=== PATIENT | female | born 2000 | race Caucasian/White ===

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

== ENCOUNTER 2022-07-29 11:22 | Emergency (ER) | payer BC, SELFPAY ==
[2022-07-29 11:30] VITALS: BP 148/68; PULSE 61; RESP 24; TEMP 36.7; O2SAT 100; BMI 25.0; BMI 32.7
--- NOTE | 2022-07-29 11:30 | XR_ITS ---
FINAL REPORT CLINICAL HISTORY: INJURY, box fell on top of foot, patient shielded FINDINGS: AP, oblique and lateral views of the left foot were obtained. There is no prior exam for comparison. There is no acute fracture or dislocation. The joint spaces are preserved. Soft tissues are normal. IMPRESSION: No acute osseous abnormality of the left foot. Reviewed, Interpreted and Dictated by Kavya Swain MD Transcribed by Chasidy Roca Authenticated and [facility]
--- NOTE | 2022-07-29 11:57 | EXP.UTC ---
Discharge Plan Disposition Patient Disposition: Home, Self-Care Condition: Good Referrals Follow up/Referrals: Alexus Chatman PA [Primary Care Provider] - See instructions Activity Restrictions/Add. Instructions Additional Instructions/Restrictions: *weight bearing as tolerated *RICE, Rest the extremity, Ice 15-20 minutes 3-4 times daily, Compress- wear the andriy wrap as discussed as much as possible to help reduce swelling and pain, Elevate the extremity when at rest *Andriy wrap is for support and help control swelling, use it except in the shower. Be sure that is not to tight but not to loose either *Elevate when resting? *Ibuprofen 600-800mg every 6-8 hours as needed for pain an inflammation. If need something more can take Tylenol in between doses of Ibuprofen to help Clinical Impressions Clinical Impression: Contusion of foot, left Qualifiers: Encounter type: initial encounter Qualified Code(s): S90.32XA - Contusion of left foot, initial encounter Instructions Patient Instructions: DI for Contusion, How To Perform RICE (Rest, Ice, Compress, Elevate) Discharge ED Provider: Celine Marrero [facility] General Stated complaint: AO@Work 07/29/22 0430 LT foot pain Mode of Arrival: Ambulatory Source of Information: Patient Limitations: No Limitations Time Seen by Provider: 07/29/22 11:57 Description of Symptoms (Recalled from Triage Doc. by RN): PATIENT C/O LEFT FOOT PAIN SINCE YESTERDAY. SHE STATES WHILE AT WORK LAST NIGHT A HEAVY BOX (POSSIBLE DRESSER) WAS DROPPED ON THAT FOOT. HEENT Symptoms (Recalled from RN notes): No Resp Symptoms (Recalled from RN notes): No Skin Symptoms (Recalled from RN notes): No MS Symptoms (Recalled from RN notes): Yes Functional Status (Recalled from RN notes): WNL History of Present Illness Provider Complaint: Patient states that she was at work yesterday when a heavy box fell on her left foot States that ever since she has been having pain in the top of her left foot and hurts when she moves it or walks on it Denies bruising or swelling but was still having pain today so she came in Related Data Allergies Allergy/AdvReac Type Severity Reaction Status Date / Time No Known Allergies Allergy Verified 10/31/20 15:32 Worker's Comp Is this a Worker's Comp case?: No PFSH [facility] Disclaimer: The information contained in this section may have been updated after the patient was seen, as this information can be updated by other users. Medical History (Updated 07/29/22 @ 12:56 by Celine Marrero APRN) Cough with hemoptysis Social History Smoking Status: Never smoker alcohol intake: never substance use type: denies use current occupational status: student Travel in the last 8 weeks: None household members: family housing: house ROS Obtained: Yes All systems reviewed & no additional complaints except as documented and Yes Systems reviewed as appropriate & no additional complaints except as documented ENT Ears, Nose, Mouth, and Throat: Reports system reviewed and no additional complaints, except as documented and Reports as per HPI Cardiovascular Cardiovascular: Reports system reviewed and no additional complaints, except as documented and Reports as per HPI Respiratory Respiratory: Reports system reviewed and no additional complaints, except as documented and Reports as per HPI Musculoskeletal Musculoskeletal: Reports system reviewed and no additional complaints, except as documented and Reports as per HPI Comments: Pain in top of foot after box fell on foot at work yesterday Physical Exam General General appearance: alert and in no apparent distress Respiratory Respiratory exam: Present normal lung sounds bilaterally; Absent respiratory distress or wheezes Cardiovascular Cardiovascular exam: Present regular rate, normal rhythm and normal heart sounds Abdominal Exam Abdominal exam: Present soft and normal bowel sounds; Absent distention or tenderness Expanded Lower E
[2022-07-29 12:58] VITALS: BP 148/68; PULSE 61; RESP 24; TEMP 36.7; O2SAT 100
== END 2022-07-29 13:08 | disposition home or self-care (01) ==
PROVIDERS: Emergency Provider Nurse Practitioner; PCP Physician Assistant
DX: S90.32XA Contusion of left foot, initial encounter (principal); W20.8XXA Other cause of strike by thrown, projected or falling object, initial encounter
CPT/HCPCS: 73630; 99212; 99213; G0463

== ENCOUNTER 2023-05-11 11:17 | Emergency (ER) | payer BC, SELFPAY ==
[2023-05-11 11:20] VITALS: BP 137/68; PULSE 70; RESP 18; TEMP 36.7; O2SAT 99; BMI 27.4
--- NOTE | 2023-05-11 11:39 | EXP.UTC ---
Discharge Plan Disposition Patient Disposition: Home, Self-Care Condition: Good Prescriptions Prescriptions: New ybzkbkofselvkfq-ozykofeee-ND [Bromfed DM] 2-30-10 mg/5 mL Syrup 5 ml PO Q6H PRN (Reason: Cough) Qty: 240 0RF ondansetron 4 mg Tablet,Disintegrating 4 mg PO Q8H PRN (Reason: Nausea) Qty: 12 0RF ibuprofen [ibuprofen] 600 mg tablet 600 mg PO Q6HP PRN (Reason: Mild Pain) Qty: 30 0RF Referrals Follow up/Referrals: Alexus Chatman PA [Primary Care Provider] - See instructions Activity Restrictions/Add. Instructions Additional Instructions/Restrictions: Drink plenty of fluids. Take tylenol or ibuprofen for pain or fever. Take the medications as directed. Follow up with your regular doctor. GO TO THE ER FOR ANY WORSENING SYMPTOMS Clinical Impressions Clinical Impression: COVID-19 Stand Alone Forms Stand Alone Forms: Work/School Release Instructions Patient Instructions: Coronavirus Disease 2019, Preventing the Spread of Coronavirus Discharge Instructions Discharge ED Provider: Acosta Truong [facility] General Stated complaint: covid psoitive, body aches Mode of Arrival: Ambulatory Source of Information: Patient Limitations: No Limitations Time Seen by Provider: 05/11/23 11:39 Description of Symptoms (Recalled from Triage Doc. by RN): Pt had covid + test at home. The symptoms shes having is body aches, and fever. HEENT Symptoms (Recalled from RN notes): Yes Resp Symptoms (Recalled from RN notes): No Skin Symptoms (Recalled from RN notes): No MS Symptoms (Recalled from RN notes): No Functional Status (Recalled from RN notes): n/a History of Present Illness Provider Complaint: She states that for the past 1 day she has had malaise, body aches, fever, n/v. She tested positive on a home covid-19 test today. She needs a pcr covid-19 test done. Related Data Previous Rx's Medication Instructions Recorded cprsfllkvrgdhha-xsmvmzsvkhhtgff-YX 5 ml PO Q6H PRN Cough #240 mL 05/11/23 2 mg-30 mg-10 mg/5 mL oral syrup (Bromfed DM) ibuprofen 600 mg tablet 600 mg PO Q6HP PRN Mild Pain #30 05/11/23 tabs ondansetron 4 mg disintegrating 4 mg PO Q8H PRN Nausea #12 tabs 05/11/23 tablet Allergies Allergy/AdvReac Type Severity Reaction Status Date / Time No Known Allergies Allergy Verified 05/11/23 11:37 Worker's Comp Is this a Worker's Comp case?: No [facility] Disclaimer: The information contained in this section may have been updated after the patient was seen, as this information can be updated by other users. Medical History (Updated 05/11/23 @ 11:45 by Acosta Truong APRN) Cough with hemoptysis Social History Smoking Status: Never smoker alcohol intake: never substance use type: denies use current occupational status: student Travel in the last 8 weeks: None household members: family housing: house ROS Obtained: Yes All systems reviewed & no additional complaints except as documented Constitutional Constitutional: Reports chills and Reports fever(s) Eyes Eyes: Denies eye discharge ENT Ears, Nose, Mouth, and Throat: Reports as per HPI Cardiovascular Cardiovascular: Denies chest pain Respiratory Respiratory: Denies chest congestion and Reports cough Gastrointestinal Gastrointestingal: Reports nausea; Denies abdominal pain, constipation, cramping, diarrhea or vomiting Musculoskeletal Musculoskeletal: Denies arthralgias Integumentary/Breasts Skin/Breast: Denies rash Neurologic Neurologic: Denies paresthesias Physical Exam General General appearance: alert and in no apparent distress Head Head exam: atraumatic, normocephalic and normal inspection Eye Eye exam: Present normal appearance, PERRL and EOMI ENT ENT exam: Present normal exam, normal oropharynx, mucous membranes moist, TM's normal bilaterally and normal external ear exam Neck Neck exam: Present normal inspection, full ROM and trachea midline; Absent meningismus or lymphadenopathy Chest Chest inspection: Present normal inspection and symmetric chest wall rise; Absent tenderness Respiratory Respiratory exam: Present normal lung sounds bilaterally; Absent respiratory distress Cardiovascular Cardiovascular exam: Present regular rate and normal rhythm; Absent JVD Abdominal Exam Abdominal exam: Present soft and normal bowel sounds; Absent distention, tenderness or guarding Extremities Exam Extremities exam: Present normal inspection, full ROM and normal capillary refill; Absent calf tenderness Back Exam Back exam: Present normal inspection; Absent tenderness Neurological Exam Neurological exam: Present alert and oriented X3 Psychiatric Psychiatric exam: Present normal affect and normal mood Skin Skin exam: Present warm, dry, intact and normal color Lymphatic Lymphatic Findings: no adenopathy Medical Decision Making Medical Records Medical records reviewed: No I reviewed the patient's medical records. Ren Inquiry Pt receiving controlled substance: No Vital Signs: 05/11/23 11:20 Temperature 98.1 F Temperature Source Oral Pulse Rate [Right Radial] 70 Respiratory Rate 18 Blood Pressure [Right Arm] 137/68 Blood Pressure Mean [Right Arm] 91 Blood Pressure Source [Right Arm] Automatic Cuff Blood Pressure Position [Right Arm] Sitting 02 Sat by Pulse Oximetry 99 Oxygen Delivery Method Room Air Lab Data Lab results reviewed: Yes I reviewed the patient's lab results. Orders (Tests/Meds): ORDERS Category Date Time Status Covid-19 Nasal PCR ([facility]) Routine Lab 05/11/23 11:30 Received
[2023-05-11 11:51] VITALS: BP 138/73; PULSE 75; RESP 18; TEMP 36.6; O2SAT 99
== END 2023-05-11 11:50 | disposition home or self-care (01) ==
PROVIDERS: Emergency Provider Nurse Practitioner Family; PCP Physician Assistant
DX: U07.1 COVID-19 (principal); R50.9 Fever, unspecified; R11.2 Nausea with vomiting, unspecified; M79.18 Myalgia, other site; R53.81 Other malaise
CPT/HCPCS: 87635; 99212; 99214; G0463

== ENCOUNTER 2024-02-22 15:22 | Emergency (ER) | payer BC, SELFPAY ==
[2024-02-22 15:35] VITALS: BP 127/71; PULSE 68; RESP 20; TEMP 36.7; O2SAT 98; BMI 28.3
--- NOTE | 2024-02-22 15:48 | ED_ITS ---
Discharge Plan Disposition Patient Disposition: Home, Self-Care Condition: Good Referrals Follow up/Referrals: Alexus Chatman PA [Primary Care Provider] - See instructions Activity Restrictions/Add. Instructions Additional Instructions/Restrictions: *Monitor Temp, Over the counter Motrin or Tylenol as directed/as needed Tylenol every 4 hours and Motrin every 6 hours (as long as your family doctor has told you that you can take it) for fever or pain. and straight to ER if unable to lower temp less than 101.0 after medication given *Warm salt water gargles may help to soothe the throat *Throat Lozenges? *Warm fluids like tea with honey may help to soothe the throat? *Sleep elevated *Humidifier/Vaporizer Follow up IMMEDIATELY for new or worsening symptoms or no Noticeable improvement over the next 48-72 hours. 911 for difficulty breathing or swallowing You were tested for today for COVID19 your test result should be back in the next 24hours, you may check your results on the [facility] [employer] [facility] Clinical Impressions Clinical Impression: Viral syndrome Stand Alone Forms Stand Alone Forms: Work/School Release Instructions Patient Instructions: DI for COVID-19 (Suspected or Confirmed ) Print Language Print Language: [place] Discharge ED Provider: Celine Marrero [facility] [place] H[place] General Stated complaint: positive covid test at home Mode of Arrival: Ambulatory Source of Information: Patient Limitations: No Limitations Time Seen by Provider: 02/22/24 15:48 Description of Symptoms (Recalled from Triage Doc. by RN): PATIENT C/O SOA AND BODY ACHES SINCE YESTERDAY. PATIENT REPORTS A POSITIVE AT HOME COVID TEST HEENT Symptoms (Recalled from RN notes): No Resp Symptoms (Recalled from RN notes): Yes Skin Symptoms (Recalled from RN notes): No MS Symptoms (Recalled from RN notes): No Functional Status (Recalled from RN notes): WNL History of Present Illness Provider Complaint: Patient states that she started feeling bad yesterday with body aches, nasal congestion, feeling a little SOA at times, headache, chills and over all not feeling well states she went to work this morning and as the day continued she continued to not feel well so when she got home she took a COVID test and it showed positive so she came in to get tested here for work Related Data Allergies Allergy/AdvReac Type Severity Reaction Status Date / Time No Known Allergies Allergy Verified 05/11/23 11:37 Worker's Comp Is this a Worker's Comp case?: No [facility] Disclaimer: The information contained in this section may have been updated after the patient was seen, as this information can be updated by other users. Medical History (Updated 02/22/24 @ 15:52 by Celine Marrero APRN) Cough with hemoptysis Social History Smoking Status: Never smoker alcohol intake: never substance use type: denies use current occupational status: student Travel in the last 8 weeks: None household members: family housing: house ROS Obtained: Yes All systems reviewed & no additional complaints except as documented and Yes Systems reviewed as appropriate & no additional complaints except as documented Constitutional Constitutional: Reports system reviewed and no additional complaints, except as documented, Reports as per HPI, Reports body ache, Reports chills, Reports fever(s) and Reports headache(s) ENT Ears, Nose, Mouth, and Throat: Reports system reviewed and no additional complaints, except as documented, Reports as per HPI, Reports headache(s), R eports nasal congestion and Reports nasal discharge Cardiovascular Cardiovascular: Reports system reviewed and no additional complaints, except as documented and Reports as per HPI Respiratory Respiratory: Reports system reviewed and no additional complaints, except as documented, Reports as per HPI and Reports shortness of breath (at times) Gastrointestinal Gastrointestingal: Reports system reviewed and no additional complaints, except as documented and as per HPI Neurologic Neurologic: Reports headache(s) Physical Exam General General appearance: alert and in no apparent distress ENT ENT exam: Present mucous membranes moist Expanded ENT Exam Nose exam: Present other (reports clear drainage); Absent sinus tenderness Throat exam: Present normal inspection Respiratory Respiratory exam: Present normal lung sounds bilaterally; Absent respiratory distress or wheezes Cardiovascular Cardiovascular exam: Present regular rate, normal rhythm and normal heart sounds Neurological Exam Neurological exam: Present alert and oriented X3 Medical Decision Making Medical Records Screening: Per USPSTF and CDC recommendations, given the prevalence of disease in our region, it is our hospital?s policy to screen for HIV and viral Hepatitis for all patients aged 18 and over and those with ongoing risk factors. Ren Inquiry Pt receiving controlled substance: No Ren was queried for this patient: No Vital Signs: 02/22/24 15:35 Temperature 98.0 F Temperature Source Oral Pulse Rate [Left Brachial] 68 Respiratory Rate 20 Blood Pressure [Left Arm] 127/71 Blood Pressure Mean [Left Arm] 89 Blood Pressure Source [Left Arm] Automatic Cuff Blood Pressure Position [Left Arm] Sitting 02 Sat by Pulse Oximetry 98 Oxygen Delivery Method Room Air Orders (Tests/Meds): ORDERS Category Date Time Status Covid-19 Nasal PCR ([facility]) Routine Lab 02/22/24 15:35 Received
[2024-02-22 15:55] VITALS: BP 127/71; PULSE 68; RESP 20; TEMP 36.7; O2SAT 98
== END 2024-02-22 15:57 | disposition home or self-care (01) ==
PROVIDERS: Emergency Provider Nurse Practitioner; PCP Physician Assistant
DX: B34.9 Viral infection, unspecified (principal)
CPT/HCPCS: 87635; 99213; G0381

== ENCOUNTER 2024-04-01 11:24 | Emergency (ER) | payer BC, SELFPAY ==
[2024-04-01] VITALS (9 sets, daily range): BP systolic 114–143; BP diastolic 63–89; PULSE 47–78; RESP 20–21; TEMP 36.3–36.8; O2SAT 98–100; BMI 25.7
[2024-04-01 11:45] LABS: MANUAL DIFFERENTIAL MANUAL DIFFERENTIAL (MANUAL DIFF); Microscopic, Urine URINE MICROSCOPIC (MICROSCOPIC)
[2024-04-01 11:47] LABS: Appearance,Urine CLEAR (Clear); Bilirubin,Urine Negative (Negative); Blood, Urine Negative (Negative); Color,Urine YELLOW (Yellow); Glucose,Urine (UA) Negative (Negative); Ketones,Urine Negative (Negative); Leukocyte Esterase,Urine Negative (Negative); Nitrate,Urine Negative (Negative); Protein,Urine Negative (Negative); Specific Gravity, Urine 1.015 (1.005-1.030); Urobilinogen,Urine 0.2 EU/dl (0.2)
[2024-04-01 11:48] LABS: Basophils # 0.1 K/mm3 (0-0.2); Basophils % 0.8 % (0.1-2.0); Eosinophils # 0.1 K/mm3 (0.0-0.4); Eosinophils % 0.9 % (0.1-12.0); Hematocrit 45.4 % (37.0-47.0); Hemoglobin 15.3 g/dL (12.2-16.2); Lymphocytes # 1.5 K/mm3 (0.7-4.5); Lymphocytes % 18.3 % (10-50); Mean Corpuscular HGB Conc 33.7 g/dL (31.8-35.4); Mean Corpuscular Hemoglobin 29.7 pg (27.0-31.2); Mean Corpuscular Volume 88.1 fl (81-99); Mean Platelet Volume 6.8 fl (7.4-10.4); Monocytes # 0.2 K/mm3 (0.1-1.0); Neutrophils # 6.3 K/mm3 (1.8-7.8); Neutrophils % 77.1 % (37.0-80.0); Platelet Count 352 K/mm3 (142-424); Red Blood Count 5.15 M/mm3 (4.20-5.40); Red Cell Distribution Width 13.2 % (11.5-17.5); White Blood Count 8.1 K/mm3 (4.8-10.8)
[2024-04-01 11:50] LABS: Chloride 106 mmol/L (98-107); Sodium 140 mmol/L (136-145)
[2024-04-01 11:53] LABS: Alanine Aminotransferase 29 U/L (12-78); Albumin/Globulin Ratio 1.3 (1.1-1.8); Alkaline Phosphatase 97 U/L (38-126); Aspartate Amino Transferase 32 U/L (14-36); Bilirubin,Total 0.5 mg/dl (0.2-1.3); Blood Urea Nitrogen 20 mg/dl (7-17); Carbon Dioxide 24 mmol/L (22.0-30.0); Creatinine Clearance Estimated 123 mL/min (50-200); Estimated Glomerular Filt Rate 91 ml/min (>60); GFR (African American) 110 ML/MIN (>60); Lipase 214 U/L (23-300); Squamous Epithelial Cell,Urine Occasional #/hpf (0-5)
[2024-04-01 11:54] LABS: Glucose 106 mg/dl (74-100)
[2024-04-01 11:57] LABS: Lactic Acid 1.4 mmol/L (0.7-2.1)
[2024-04-01 12:09] LABS: HCG Qualitative, Serum Negative (Negative)
--- NOTE | 2024-04-01 12:13 | CT_ITS ---
FINAL REPORT TECHNIQUE: Thin section axial images were obtained through the abdomen after intravenous contrast. Reconstruction images were obtained from the axial data. Exam was performed using dose reduction techniques. CLINICAL HISTORY: RLQ pain x 1 day, nausea and vomiting FINDINGS: The lung bases are clear. The liver is homogeneous. The gallbladder is present. The spleen, adrenal glands, and pancreas are unremarkable. There is no hydronephrosis or solid renal mass. There is no abdominal lymphadenopathy or ascites. There is no evidence of small bowel obstruction. There are multiple fluid-filled small bowel loops. There is mild fluid distention of the colon. Uterus is unremarkable for age. There is a cystic lesion in the posterior left adnexa measuring 6.5 cm, may represent an ovarian cyst. The appendix is normal. There is no pelvic lymphadenopathy or ascites. No acute osseous abnormalities identified. IMPRESSION: Probable enterocolitis. Normal appendix. Probable ovarian cyst. Consider follow-up ultrasound in 6 or 10 weeks as this is likely a functional cyst for patient's age. Reviewed, Interpreted and Dictated by Kavya Swain MD Transcribed by Chasidy Roca Authenticated and [facility]
--- NOTE | 2024-04-01 12:19 | ED_ITS ---
Discharge Plan Disposition Patient Disposition: Home, Self-Care Condition: Good Prescriptions Prescriptions: New promethazine 12.5 mg tablet 12.5 mg PO TID PRN (Reason: nausea and vomiting) 5 Days Qty: 15 0RF Referrals Follow up/Referrals: Alexus Chatman PA [Primary Care Provider] - See instructions Activity Restrictions/Add. Instructions Additional Instructions/Restrictions: As discussed please follow-up with your primary care provider regarding today's visit. Should your symptoms worsen please return to ED. Clinical Impressions Clinical Impression: Abdominal pain, Nausea & vomiting, Viral gastroenteritis Instructions Patient Instructions: DI for Acute Abdominal Pain Print Language Print Language: [place] Citizen Discharge ED Provider: Zackary Parks General Adult HPI General Chief complaint: Abdominal Pain Stated complaint: abd pain, vomiting Time Seen by Provider: 04/01/24 11:51 Mode of Arrival: Family Vehicle Source of Information: Patient Limitations: No Limitations Description of Symptoms (Recalled from ER Triage Doc. by RN): Pt c/o severe mid abd pain that now radiates to RLQ and intractable vomiting. States the vomiting began first yesterday evening and has coninuted through today. She denies any surgical hx. Reports LMP was 1wk ago. Denies any diarrhea. She does report chills and body aches. History of Present Illness HPI narrative: 23-year-old female presents to the ED with complaint of abdominal pain starting last night. Patient has had vomiting and diarrhea since that time. States pain initially started around her bellybutton and then went into the right lower quadrant and into her back. Denies blood in vomit or stool. Denies dysuria, vaginal bleeding or discharge. Last menstrual period last week. Denies significant past medical history. Denies fever, chest pain, shortness of breath, other symptoms at this time Please note that above description of symptoms, in this electronic medical record under categorization of recalled from ER triage doctor by RN are reflective of an initial nursing assessment, however, is not reflective of my full history and physical exam that was personally taken and clarified. Consequentially, this preceding description of symptoms, which may include the patient's categorized chief complaint in the EMR, do not reflect my personal clinical impression, and the ultimate description of history of present illness and patient stated complaints should be deferred to this section of the note. Unless stated otherwise or congruent with this section of the note, additional signs, symptoms, or incongruence should be interpreted as inaccurate with my clinical impression. Related Data Previous Rx's ?Medication ?Instructions ?Recorded promethazine 12.5 mg tablet 12.5 mg PO TID PRN nausea and 04/01/24 vomiting 5 days #15 tabs Allergies Allergy/AdvReac Type Severity Reaction Status Date / Time ondansetron (From Zofran) AdvReac Intermediate blacks Verified 04/01/24 12:19 [facility] Disclaimer: The information contained in this section may have been updated after the patient was seen, as this information can be updated by other users. Medical History (Updated 04/01/24 @ 15:46 by Zackary Parks DO) Cough with hemoptysis Social History Smoking Status: Current some day smoker alcohol intake: never substance use type: denies use current occupational status: student household members: family housing: house Other Medical History Have you received the Flu Vaccine for this season: No Have you received the Pneumonia Vaccine: No ROS Obtained: Yes Systems reviewed as appropriate & no additional complaints except as documented Physical Exam General General appearance: alert and in no apparent distress Head Head exam: atraumatic and normocephalic Eye Eye exam: Present normal appearance and EOMI ENT ENT exam: Present normal exam Neck Neck exam: Present normal inspection Chest Chest inspection: Present normal inspection and symmetric chest wall rise Respiratory Respiratory exam: Present normal lung sounds bilaterally Cardiovascular Cardiovascular exam: Present regular rate, normal rhythm and normal heart sounds Abdominal Exam Abdominal exam: Present soft, tenderness, rebound, normal bowel sounds and tenderness at McBurney's Point; Absent distention, guarding, Urias's sign or Rovsing's sign Abdominal tenderness: Present RLQ and moderate Extremities Exam Extremities exam: Present normal inspection and full ROM; Absent tenderness Back Exam Back exam: Present normal inspection Neurological Exam Neurological exam: Present alert and oriented X3 Psychiatric Psychiatric exam: Present normal affect and normal mood Skin Skin exam: Present warm, dry, intact and normal color; Absent rash Medical Decision Making Medical Records Medical records reviewed: Yes I reviewed the patient's medical records. Screening: Per USPSTF and CDC recommendations, given the prevalence of disease in our region, it is our hospital?s policy to screen for HIV and viral Hepatitis for all patients aged 18 and over and those with ongoing risk factors. Ren Inquiry Pt receiving controlled substance: No Ren was queried for this patient: No Vital Signs: 04/01/24 11:24 04/01/24 12:01 04/01/24 12:31 Temperature 97.4 F L Temperature Source Oral Pulse Rate 58 L 69 Pulse Rate [Right] 78 Respiratory Rate 21 Blood Pressure 122/67 122/86 Blood Pressure [Left Arm] 143/89 H Blood Pressure Mean 86 95 Blood Pressure Mean [Left Arm] 107 Blood Pressure Source [Left Arm] Automatic Cuff 02 Sat by Pulse Oximetry 100 100 98 Oxygen Delivery Method Room Air 04/01/24 13:00 04/01/24 13:30 04/01/24 14:00 Temperature Temperature Source Pulse Rate 71 72 54 L Pulse Rate [Right] Respiratory Rate Blood Pressure 118/63 115/64 115/65 Blood Pressure [Left Arm] Blood Pressure Mean 83 74 73 Blood Pressure Mean [Left Arm] Blood Pressure Source [Left Arm] 02 Sat by Pulse Oximetry 99 99 99 Oxygen Delivery Method 04/01/24 14:30 04/01/24 14:45 Temperature Temperature Source Pulse Rate 58 L 47 L Pulse Rate [Right] Respiratory Rate Blood Pressure 114/64 Blood Pressure [Left Arm] Blood Pressure Mean 83 Blood Pressure Mean [Left Arm] Blood Pressure Source [Left Arm] 02 Sat by Pulse Oximetry 99 99 Oxygen Delivery Method Lab Data Lab Results 04/01/24 11:30: WBC 8.1, RBC 5.15, Hgb 15.3, Hct 45.4, MCV 88.1, MCH 29.7, MCHC 33.7, RDW 13.2, Plt Count 352, MPV 6.8 L, Neut % (Auto) 77.1, Lymph % (Auto) 18.3, [place] % (Auto) 3.0, Eos % (Auto) 0.9, Baso % (Auto) 0.8, Neut # (Auto) 6.3, Lymph # (Auto) 1.5, [place] # (Auto) 0.2, Eos # (Auto) 0.1, Baso # (Auto) 0.1, Total Counted 100, Neutrophils % (Manual) 69, Lymphocytes % (Manual) 29, M onocytes % (Manual) 1 L, Eosinophils % (Manual) 1, Platelet Estimate Normal, RBC Morphology Normal, Sodium 140, Potassium 4.0, Chloride 106, Carbon Dioxide 24, Anion Gap 14.0, BUN 20 H, Creatinine 0.80, Estimated Creat Clear 123, Estimated GFR 91, Est GFR ( Amer) 110, Glucose 106 H, Lactate 1.4, Calcium 10.0, Total Bilirubin 0.5, AST 32, ALT 29, Alkaline Phosphatase 97, Total Protein 9.0 H, Albumin 5.0, Globulin 4.0 H, Albumin/Globulin Ratio 1.3, Lipase 214, Serum HCG, Qual Negative, Urine Color Yellow, Urine Appearance Clear, Urine pH 8.0, Ur Specific [place] 1.015, Urine Protein Negative, Urine Glucose (UA) Negative, Urine Ketones Negative, Urine Blood Negative, Urine Nitrate Negative, Urine Bilirubin Negative, Urine Urobilinogen 0.2, Ur Leukocyte Esterase Negative, Urine RBC None, Urine WBC None, Ur Squamous Epith Cells Occasional, Urine Bacteria None, HIV 1&2 Antibody Rapid Nonreactive 04/01/24 12:27: Blood Type A Positive, Antibody Screen Negative 04/01/24 11:30 04/01/24 11:30 Orders (Tests/Meds): ED MEDICATIONS Generic Name Dose Route Start Last Admin Trade Name Freq PRN Reason Stop Dose Admin Sodium Chloride 10 ml 04/01/24 11:39 Sodium Chloride 0.9% 10ml Flush Syringe IV 05/01/24 11:38 NEEDED PRN Maintain IV Site Sodium Chloride 10 ml 04/01/24 12:39 04/01/24 12:39 Sodium Chloride 0.9% 10ml Syr (Rad Only) IV 05/01/24 12:38 10 ml NEEDED PRN Administration Maintain IV Site Discontinued Medications Generic Name Dose Route Start Last Admin Trade Name Carla PRN Reason Stop Dose Admin Iopamidol 75 ml 04/01/24 12:39 04/01/24 12:39 Iopamidol-370 (76%);100ml Bottle IV 04/01/24 12:40 75 ml ONCE ONE Administration Morphine Sulfate 4 mg 04/01/24 12:13 04/01/24 12:21 Morphine 4mg/Ml Syringe IV 04/01/24 12:14 4 mg ONCE ONE Administration Ondansetron HCl 4 mg 04/01/24 12:13 04/01/24 12:29 Ondansetron 4mg/2ml Vial IV 04/01/24 12:14 Not Given ONCE ONE Promethazine HCl 12.5 mg 04/01/24 12:17 04/01/24 12:22 Promethazine Hcl 25mg/Ml 1ml Vial IV 04/01/24 12:18 12.5 mg ONCE ONE Administration Sodium Chloride 25 ml 04/01/24 12:17 04/01/24 12:35 Sodium Chloride 0.9% 25ml Bag IV 04/01/24 12:18 25 ml ONCE ONE Administration ORDERS Category Date Time Status Type and Screen Stat BBK 04/01/24 12:[address] abdomen pelvis w con Stat Cat Scan 04/01/24 12:13 Completed US transvaginal Stat Exams 04/01/24 14:24 Taken Complete Blood Count Man Dif Stat Lab 04/01/24 11:30 Completed Comprehensive Metabolic Panel Stat Lab 04/01/24 11:30 Completed HIV (1&2) Antibody Rapid Stat Lab 04/01/24 11:30 Received Hep C Ab with Reflex to RNA Stat Lab 04/01/24 11:30 Received Lactic Acid Stat Lab 04/01/24 11:30 Completed Lipase Stat Lab 04/01/24 11:30 Completed Serum [HCG Qualitative, Serum] Stat Lab 04/01/24 11:30 Completed Urinalysis and Microscopic Stat Lab 04/01/24 11:30 Completed Medical Decision Narrative: Patient with history and exam per above presenting for evaluation of abdominal pain, nausea, vomiting, diarrhea Diagnoses considered include gastroenteritis, appendicitis, colitis, UTI, , ovarian torsion, ovarian cyst ED workup and treatment included: As above Labs were independently interpreted by me, significant for no noted leukocytosis, no noted anemia. No acute electrolyte abnormalities, no UTI, negative test Imaging was independently visualized and interpreted by me, significant for no noted appendicitis, left ovarian cyst. Bowel consistent with enterocolitis, no further acute pathology per my review. Patient has been informed of a ovarian cyst found on CT imaging. Ultrasound with no noted torsion, blood flow noted to bilateral ovaries, no noted ovarian cyst on ultrasound. Patient has been informed of this discrepancy between imaging. Patient to follow-up with primary care provider. Please refer to radiology report for full details. My clinical impression at this time is most consistent with viral gastroenteritis. On reassessment patient states she is feeling much better, tolerating oral intake. At this time medically clear for discharge with outpatient follow-up. Prescribing Phenergan. Patient informed that she should stay hydrated. Given instructions to return to ED if symptoms worsen. Patient agreeable with this plan. Discharged home with hemodynamically stable vitals I discussed my clinical impression with patient and answered all questions. At this time, the evidence for any other entities in the differential is insufficient to warrant any further testing or ED observation. This was explained to the patient. The patient was advised that persistent or worsening symptoms require further evaluation. Critical Care Critical Care Time Critical Care Time: No
[2024-04-01] MEDS: MORPHINE 4MG/ML SYRINGE 4 MG IV (12:21)
[2024-04-01] MEDS: PROMETHAZINE HCL 25MG/ML 1ML VIAL 12.5 MG IV (12:22)
[2024-04-01] MEDS: SODIUM CHLORIDE 0.9% 25ML BAG 25 ML IV (12:35)
--- NOTE | 2024-04-01 12:35 | PC.NURSE ---
transported to ct scan via stretcher and radioactive waste disposal dispatcher
[2024-04-01] MEDS: SODIUM CHLORIDE 0.9% 10ML SYR (RAD ONLY) 10 ML IV (12:39)
[2024-04-01] MEDS: IOPAMIDOL-370 (76%);100ML BOTTLE 75 ML IV (12:39)
[2024-04-01 13:51] LABS: Eosinophils % 1 % (0-3); Lymphocytes % 29 % (10-50); Monocytes % 1 % (2-9); Neutrophils % 69 % (42-76); Platelet Estimate Normal; RBC Morphology Normal; Total Cells Counted 100
--- NOTE | 2024-04-01 14:24 | US_ITS ---
PROCEDURE INFORMATION: Exam: US Pelvis, Transvaginal, Non-Obstetric Exam date and time: 04/01/2024 2:59 PM Age: 23 years old Clinical indication: Other: Rlq pain, torsion concern TECHNIQUE: Imaging protocol: Real-time transvaginal pelvic (non-obstetric) ultrasound with image documentation. Transvaginal imaging was used for better evaluation of the endometrium, adnexa, and/or cervix. COMPARISON: CT ABDOMEN PELVIS W CON 04/01/2024 12:39 PM FINDINGS: Uterus: Endometrium measures 0.3 cm in thickness. Uterus measures 6.8 x 2.9 x 4.4 cm. There is a cystic area in the lower uterine segment which may reflect nabothian cysts. Right ovary/adnexa: Right ovary measures 3.8 x 1.7 x 1.5 cm. There is normal arterial and venous flow to the right ovary. Left ovary/adnexa: Left ovary measures 1.2 x 2.5 x 3.1 cm. There is normal arterial and venous flow to the left ovary. There is a mildly complex lesion in the left adnexa measuring 3.8 x 1.9 x 3.4 cm with internal echoes and questionable internal vascularity. Urinary bladder: Urinary bladder is limited. Intraperitoneal space: No free fluid. IMPRESSION: Normal vascular flow to both ovaries. Mildly complex left adnexal lesion measuring up to 3.8 cm, six week follow-up study would be suggested. If more urgent evaluation is desired, contrast-enhanced MRI would be the study of choice.
--- NOTE | 2024-04-01 14:25 | PC.NURSE ---
Notified radiology of need for TVUS
--- NOTE | 2024-04-01 15:05 | PC.NURSE ---
pt transported to ultrasound via straddle buggy operator and wheelchair
[2024-04-01 15:29] LABS: HIV (1&2) Antibody Rapid NONREACTIVE (NONREACTIVE)
[2024-04-03 09:24] LABS: HCV Ab Non Reactive (Non Reactive)
== END 2024-04-01 16:08 | disposition home or self-care (01) ==
PROVIDERS: Emergency Provider Student in an Organized Health Care Education/Training Program; PCP Physician Assistant
DX: A08.4 Viral intestinal infection, unspecified (principal); R10.31 Right lower quadrant pain; R11.2 Nausea with vomiting, unspecified; R68.83 Chills (without fever); M79.10 Myalgia, unspecified site
CPT/HCPCS: 74177; 76830; 80053; 81001; 83605; 83690; 84703; 85007; 85014; 85018; 85048; 85049; 86803; 86850; 87389; 96374; 96375; 99285; J2270; J2550; Q9967

== ENCOUNTER 2024-05-13 05:27 | Emergency (ER) | payer OTHER, SELFPAY ==
[2024-05-13 05:28] VITALS: BP 118/62; PULSE 65; RESP 16; TEMP 36.7; O2SAT 100; BMI 26.6
--- NOTE | 2024-05-13 05:36 | XR_ITS ---
PROCEDURE INFORMATION: Exam: XR Right Foot Exam date and time: 05/13/2024 5:44 AM Age: 23 years old Clinical indication: Injury or trauma; Other: Rolled ankle; Other: Pain; Additional info: Rolled ankle, lateral mal pain TECHNIQUE: Imaging protocol: Radiologic exam of the right foot. Views: 3 or more views. COMPARISON: CR XR FOOT RT MIN 3V 05/13/2024 5:44 AM FINDINGS: Bones/joints: Normal. Soft tissues: Normal. IMPRESSION: No acute findings.
--- NOTE | 2024-05-13 05:36 | XR_ITS ---
PROCEDURE INFORMATION: Exam: XR Right Ankle Exam date and time: 05/13/2024 5:44 AM Age: 23 years old Clinical indication: Injury or trauma; Other: Rolled ankle; Other: Pain; Additional info: Rolled ankle, lateral mal pain TECHNIQUE: Imaging protocol: Radiologic exam of the right ankle. Views: 3 or more views. COMPARISON: CR XR FOOT RT MIN 3V 05/13/2024 5:44 AM FINDINGS: Bones/joints: Normal. Soft tissues: Normal. IMPRESSION: No acute findings.
--- NOTE | 2024-05-13 05:36 | ED_ITS ---
Discharge Plan Disposition Patient Disposition: Home, Self-Care Condition: Good Prescriptions Prescriptions: No Action promethazine 12.5 mg tablet 12.5 mg PO TID PRN (Reason: nausea and vomiting) 5 Days Qty: 15 0RF Referrals Follow up/Referrals: Provider,Referral, [Primary Care Provider] - See instructions Activity Restrictions/Add. Instructions Additional Instructions/Restrictions: Please follow-up with your primary care provider. Please return to the emergency department if you develop any new or worsening symptoms or become concerned for your health. Clinical Impressions Clinical Impression: Right ankle sprain Qualifiers: Encounter type: initial encounter Print Language Print Language: [place]ian Discharge ED Provider: Marco Cannon General Adult HPI General Chief complaint: Extremity Injury, Lower Stated complaint: R ankle injury, work related Time Seen by Provider: 05/13/24 05:36 History of Present Illness HPI narrative: 23-year-old female without significant past medical history presents for right ankle pain. She reports she rolled it at work tonight. Reports pain is greatest at the lateral malleolus. She is still to bear weight. Took Tylenol ibuprofen prior to arrival. Related Data Previous Rx's ?Medication ?Instructions ?Recorded promethazine 12.5 mg tablet 12.5 mg PO TID PRN nausea and 04/01/24 vomiting 5 days #15 tabs Allergies Allergy/AdvReac Type Severity Reaction Status Date / Time ondansetron (From Zofran) AdvReac Intermediate blacks Verified 04/01/24 12:19 out [facility] Disclaimer: The information contained in this section may have been updated after the patient was seen, as this information can be updated by other users. Medical History (Updated 05/13/24 @ 05:53 by Marco Cannon MD) Cough with hemoptysis Social History Smoking Status: Current every day smoker alcohol intake: never substance use type: denies use current occupational status: student Travel in the last 8 weeks: None household members: family housing: house Have you lived/traveled outside [place] in past 30 days?: No Contact w/someone who lives/traveled outside US past 30 days?: No Exposure to someone with infectious disease in past 14 days?: No Do you have a fever (greater than 100.4 F or 38 C)?: No Have you tested positive for COVID-19: No Exposed to someone with COVID-19 in past 14 days?: No Do you have a sore throat?: No Do you have a cough?: No Do you have any weakness?: No Do you have any diarrhea?: No Are you experiencing any unusual bleeding?: No Do you have any muscle aches/pain?: No Do you have any abdominal pain?: No Are you experiencing loss of taste or smell?: No Other Medical History Have you received the Flu Vaccine for this season: No Have you received the Pneumonia Vaccine: No ROS Obtained: Yes All systems reviewed & no additional complaints except as documented Physical Exam General General appearance: alert and in no apparent distress Head Head exam: atraumatic and normocephalic Eye Eye exam: Present normal appearance, PERRL and EOMI ENT ENT exam: Present normal oropharynx and normal external ear exam Neck Neck exam: Present normal inspection and full ROM Chest Chest inspection: Present normal inspection and symmetric chest wall rise; Absen t tenderness Respiratory Respiratory exam: Present normal lung sounds bilaterally; Absent respiratory distress Cardiovascular Cardiovascular exam: Present regular rate and normal rhythm Abdominal Exam Abdominal exam: Present soft; Absent distention, tenderness or guarding Extremities Exam Extremities exam: Present normal inspection, full ROM and tenderness (Tenderness to the lateral malleolar tip on the right); Absent edema or joint swelling Back Exam Back exam: Present normal inspection; Absent tenderness Neurological Exam Neurological exam: Present alert and oriented X3; Absent motor sensory deficit Psychiatric Psychiatric exam: Present normal affect and normal mood Skin Skin exam: Present warm, dry and normal color Lymphatic Lymphatic Findings: no adenopathy Medical Decision Making Medical Records Medical records reviewed: Yes I reviewed the patient's medical records. Screening: Per USPSTF and CDC recommendations, given the prevalence of disease in our region, it is our hospital?s policy to screen for HIV and viral Hepatitis for all patients aged 18 and over and those with ongoing risk factors. Ren Inquiry Pt receiving controlled substance: No Ren was queried for this patient: No Vital Signs: 05/13/24 05:28 05/13/24 05:56 Temperature 98.0 F 98.0 F Temperature Source Oral Oral Pulse Rate 59 L Pulse Rate [Right Radial] 65 Respiratory Rate 16 16 Blood Pressure 121/66 Blood Pressure [Right Arm] 118/62 Blood Pressure Mean [Right Arm] 80 Blood Pressure Source Automatic Cuff Blood Pressure Source [Right Arm] Automatic Cuff Blood Pressure Position Supine Blood Pressure Position [Right Arm] Supine 02 Sat by Pulse Oximetry 100 Oxygen Delivery Method Room Air Room Air Lab Data Lab results reviewed: Yes I reviewed the patient's lab results. Orders (Tests/Meds): ORDERS Category Date Time Status Ankle XR -Right minimum 3 Views [XR ankle RT min 3V] Exams 05/13/24 05:36 Taken Stat Foot XR right minimum 3 views [XR foot RT min 3V] Stat Exams 05/13/24 05:36 Taken Medical Decision Narrative: 23-year-old female without significant past medical history presents for right ankle pain after rolling it at work.. History was obtained via interactive discussion with patient. On arrival, patient is [afebrile, hemodynamically stable, satting appropriately, alert, oriented x4, GCS 15], moving all extremities spontaneously. Full physical exam performed and significant for lateral malleolar tenderness Differential includes but is not limited to fracture dislocation sprain. Radiographs were obtained and interpreted by me, no evidence of acute fracture or dislocation. Patient discharged in stable condition with return precautions and instructions regarding symptomatic care. Procedures Risk/Benefits of Procedure(s) Were Explained: Yes Critical Care Critical Care Time Critical Care Time: No
[2024-05-13 05:56] VITALS: BP 121/66; PULSE 59; RESP 16; TEMP 36.7; O2SAT 98
== END 2024-05-13 05:59 | disposition home or self-care (01) ==
PROVIDERS: Emergency Provider Emergency Medicine
DX: S93.401A Sprain of unspecified ligament of right ankle, initial encounter (principal); M25.571 Pain in right ankle and joints of right foot; X58.XXXA Exposure to other specified factors, initial encounter; Y93.9 Activity, unspecified; Y92.89 Other specified places as the place of occurrence of the external cause
CPT/HCPCS: 73610; 73630; 99283

== ENCOUNTER 2024-05-16 08:14 | Outpatient (CLI) | payer OTHER, SELFPAY ==
--- NOTE | 2024-05-16 08:21 | US_ITS ---
PROCEDURE: US TRANSVAGINAL CLINICAL INDICATION: OVARIAN CYST LEFT SIDE COMPARISON: CT CT ABDOMEN PELVIS W CON from 08/20/2020 US US ABDOMEN COMPLETE from 09/10/[address] ABDOMEN PELVIS W CON from 04/01/2024 US US TRANSVAGINAL from 04/01/2024 FINDINGS: Transvaginal sonographic images of the pelvis were obtained. UTERUS: 7.4cm x 4.6 cmx 3.0cm anteverted with a combined endometrial thickness of 6.3mm. There is a small fluid-filled area in the lower uterine segment. Images 3-10. LEFT OVARY: 1.2cmx2.6 cmx2.8cm with a volume of 4.5ml. There are multiple small peripheral follicles. The previously described left adnexal mass is no longer present and was likely bowel on the previous ultrasound. RIGHT OVARY: 3.7 cmx 2.8 cmx1.6 cm with a volume of 8.4ml. There are several peripheral small follicles. There is a dominant follicle measuring 1.7 cm x 1.4 cm x 2.1 cm Both ovaries are seen and appear normal. Doppler flow to both ovaries are seen. There is no fluid in the cul-de-sac. IMPRESSION: 1. Anteverted uterus normal in shape and size. The endometrium is thin measuring 6.3 mm. 2. There is small fluid-filled area in the lower uterine segment. 3. Both ovaries are seen and appear normal. Both ovaries have multiple small peripheral follicles. The right ovary has a dominant follicle measuring 2.1 cm. 4. The previously described left adnexal mass is no longer present and I suspect it was bowel that was seen on the previous ultrasound. 5. No fluid in the cul-de-sac. Dictated by: Evans Shah MD 05/16/2024 09:57 Evans Shah MD in [place] 05/16/2024 09:57
== END 2024-05-16 23:59 | disposition home or self-care (01) ==
LOC: RAD 08:16
PROVIDERS: PCP Physician Assistant; Visit Provider Physician Assistant
DX: N83.202 Unspecified ovarian cyst, left side (principal)
CPT/HCPCS: 76830

== ENCOUNTER 2024-05-19 23:09 | Emergency (ER) | payer SELFPAY ==
[2024-05-20 00:30] VITALS: BP 126/64; PULSE 63; RESP 16; TEMP 36.7; O2SAT 99; BMI 26.6
--- NOTE | 2024-05-20 00:48 | XR_ITS ---
PROCEDURE INFORMATION: Exam: XR Lumbosacral Spine Exam date and time: 05/20/2024 2:04 AM Age: 23 years old Clinical indication: Injury or trauma; Fall; Other: Pain; Additional info: Fall on stairs, low suspicion for bony injury TECHNIQUE: Imaging protocol: Radiologic exam of the lumbosacral spine. Views: 2 or 3 views. COMPARISON: CT ABDOMEN PELVIS W CON 04/01/2024 12:39 PM FINDINGS: Bones/joints: Normal. No acute fracture. Normal alignment. No significant degenerative change. Soft tissues: Unremarkable. IMPRESSION: No acute findings.
[2024-05-20] MEDS: LIDOCAINE 5% TRANSDERMAL PATCH 1 EACH TP (00:58)
[2024-05-20] MEDS: ACETAMINOPHEN 500MG TAB 1000 MG PO (00:58)
[2024-05-20 02:07] LABS: Urine Pregnancy, HCG Qual. Negative (Negative)
--- NOTE | 2024-05-20 02:32 | HMH.EDGENADL ---
Discharge Plan Disposition Patient Disposition: Home, Self-Care Condition: Good Prescriptions Prescriptions: New methocarbamol 500 mg tablet 500 mg PO TID PRN (Reason: muscle spasm) Qty: 20 0RF lidocaine [DermacinRx Lidocan] 5 % adhesive patch,medicated See Rx Instructions .ROUTE .COMPLEX Qty: 15 0RF Rx Instructions: Apply to most painful area and leave on for 12 hours, remove and leave off for 12 hours before using a new patch No Action promethazine 12.5 mg tablet 12.5 mg PO TID PRN (Reason: nausea and vomiting) 5 Days Qty: 15 0RF Referrals Follow up/Referrals: Alexus Chatman PA [Primary Care Provider] - See instructions Activity Restrictions/Add. Instructions Additional Instructions/Restrictions: You were evaluated in the ER and are appropriate for discharge at this time. Take the prescribed medications as directed. The methocarbamol (muscle relaxer) may make you quite sleepy, do not drive or operate machinery after taking it. Use the prescribed lidocaine patch as directed. Take Tylenol, ibuprofen if needed for pain, do not exceed the recommended dose on the bottle. Drink plenty of water and eat a small snack each time you take these medications to avoid side effects. Make an appointment with your primary care doctor for reevaluation in 2 to 3 days. Return to the ER with new, worsening, or otherwise concerning symptoms. Clinical Impressions Clinical Impression: Fall, Acute lumbar back pain Print Language Print Language: [place]ian Discharge ED Provider: Yasmeen Grey General Adult HPI General Chief complaint: PAIN Stated complaint: fall, back pain Time Seen by Provider: 05/20/24 00:39 Mode of Arrival: Ambulatory Source of Information: Patient Limitations: No Limitations Description of Symptoms (Recalled from ER Triage Doc. by RN): pt reports she fell down the stairs at 10pm and now has 10/10 pain in her lower back that radiates into the left hip. History of Present Illness HPI narrative: Otherwise healthy 23-year-old female presents to the ER with complaints of low back pain radiating to the left hip starting after a fall. This evening around 10 PM she slipped and fell on the stairs striking her low back. She reports pain radiating from the lumbar spine into the left hip. She has no numbness, tingling, or weakness, she denies saddle anesthesia, bowel or bladder incontinence. She states she did not take any medications prior to arrival. She denies any other pain or injuries, no recent illness. Related Data Previous Rx's ?Medication ?Instructions ?Recorded promethazine 12.5 mg tablet 12.5 mg PO TID PRN nausea and 04/01/24 vomiting 5 days #15 tabs lidocaine 5 % topical patch See Rx Instructions topical 05/20/24 (DermacinRx Lidocan) .COMPLEX #15 ea methocarbamol 500 mg tablet 500 mg PO TID PRN muscle spasm #20 05/20/24 tabs Allergies Allergy/AdvReac Type Severity Reaction Status Date / Time ondansetron (From Zofran) AdvReac Intermediate blacks Verified 04/01/24 12:19 out [facility] Disclaimer: The information contained in this section may have been updated after the patient was seen, as this information can be updated by other users. Medical History (Updated 05/20/24 @ 02:29 by Yasmeen Grey MD) Cough with hemoptysis Social History Smoking Status: Never smoker alcohol intake: never substance use type: denies use current occupational status: student Travel in the last 8 weeks: None household members: family housing: house Have you lived/traveled outside [place] in past 30 days?: No Contact w/someone who lives/traveled outside [place] past 30 days?: No Exposure to someone with infectious disease in past 14 days?: No Do you have a fever (greater than 100.4 F or 38 C)?: No Have you tested positive for COVID-19: No Exposed to someone with COVID-19 in past 14 days?: No Do you have a sore throat?: No Do you have a cough?: No Do you have any weakness?: No Do you have any diarrhea?: No Are you experiencing any unusual bleeding?: No Do you have any muscle aches/pain?: No Do you have any abdominal pain?: No Are you experiencing loss of taste or smell?: No Other Medical History Have you received the Flu Vaccine for this season: No Have you received the Pneumonia Vaccine: No ROS Obtained: Yes Systems reviewed as appropriate & no additional complaints except as documented per HPI Physical Exam General General appearance: alert and in no apparent distress Head Head exam: atraumatic and normocephalic Eye Eye exam: Present PERRL and EOMI ENT ENT exam: Present mucous membranes moist Neck Neck exam: Present normal inspection and full ROM Chest Chest inspection: Present symmetric chest wall rise Respiratory Respiratory exam: Absent respiratory distress or stridor Cardiovascular Cardiovascular exam: Present regular rate and normal rhythm Abdominal Exam Abdominal exam: Present soft; Absent distention or tenderness Extremities Exam Extremities exam: Present full ROM; Absent edema or joint swelling Back Exam Back exam: Present tenderness (Tenderness to palpation of the bilateral lumbar paraspinal muscles, there is abrasion over the low back but no step-off or deformity) Neurological Exam Neurological exam: Present alert, oriented X3, normal gait and other (No saddle anesthesia, full strength intact); Absent motor sensory deficit Psychiatric Psychiatric exam: Present normal affect and normal mood Skin Skin exam: Present warm and dry Medical Decision Making Medical Records Medical records reviewed: Yes I reviewed the patient's medical records. Screening: Per USPSTF and CDC recommendations, given the prevalence of disease in our region, it is our hospital?s policy to screen for HIV and viral Hepatitis for all patients aged 18 and over and those with ongoing risk factors. MR Comment: Patient was evaluated 5 days ago in the ER with right ankle pain. She was diagnosed with an ankle sprain. I personally reviewed x-ray which does not demonstrate fracture or dislocation. Ren Inquiry Pt receiving controlled substance: No Vital Signs: 05/20/24 00:30 Temperature 98.0 F Temperature Source Oral Pulse Rate [Right] 63 Respiratory Rate 16 Blood Pressure [Right Arm] 126/64 Blood Pressure Mean [Right Arm] 84 02 Sat by Pulse Oximetry 99 Lab Data Lab Results 05/20/24 01:55: Urine HCG, Qual Negative Orders (Tests/Meds): ED MEDICATIONS Discontinued Medications Generic Name Dose Route Start Last Admin Trade Name Freq PRN Reason Stop Dose Admin Acetaminophen 1,000 mg 05/20/24 00:48 05/20/24 00:58 Acetaminophen 500mg Tab PO 05/20/24 00:49 1,000 mg ONCE ONE Administration Lidocaine 1 each 05/20/24 00:48 05/20/24 00:58 Lidocaine 5% Transdermal Patch TP 05/20/24 00:49 1 each ONCE ONE Administration ORDERS Category Date Time Status Lumbar spine XR 2-3 views [XR lumbar spine 2-3V] Stat Exams 05/20/24 00:48 Taken Urine , HCG Qual. Stat Lab 05/20/24 01:55 Completed Medical Decision Narrative: In summary, this 23-year-old female presents to the emergency department today with low back pain after fall. On initial evaluation patient is hemodynamically stable, afebrile, no red flag symptoms of back pain, no saddle anesthesia, no bowel or bladder incontinence, patient does have paraspinal tenderness with abrasions, no deformity or step-off, neurovascularly intact throughout, independently ambulatory. Differential diagnosis includes but is not limited to muscle spasm, ecchymosis, soft tissue injury, I considered fracture or malalignment but have low concern for this. Based on these concerns, I ordered x-ray of the lumbar spine, I also ordered test. Patient received Tylenol, lidocaine patch for treatment of pain. On reassessment she is resting comfortably, laying on her stomach playing on her phone. Labs reviewed demonstrate negative test. X-rays personally interpreted do not demonstrate acute bony injury, see radiology read for final interpretation. Patient is appropriate for discharge at this time. I prescribed methocarbamol for outpatient management and gave the patient instructions on careful use of this since it can be mildly sedating. Also prescribed lidocaine patches. Patient was given instructions on symptomatic management, follow up instructions, and return precautions for the emergency department. Patient indicated understanding and was discharged in stable condition. Critical Care Critical Care Time Critical Care Time: No
[2024-05-20 02:54] VITALS: BP 120/64; PULSE 58; RESP 16; TEMP 36.8; O2SAT 99
== END 2024-05-20 03:01 | disposition home or self-care (01) ==
PROVIDERS: Emergency Provider Emergency Medicine; PCP Physician Assistant
DX: M54.50 Low back pain, unspecified (principal); M25.552 Pain in left hip; W10.9XXA Fall (on) (from) unspecified stairs and steps, initial encounter; Y93.89 Activity, other specified; Y92.9 Unspecified place or not applicable
CPT/HCPCS: 72100; 81025; 99283